=== PATIENT | female | born 1945 | race Caucasian/White ===

== ENCOUNTER 2017-01-25 08:14 | Day surgery (SDC) | payer OTHER, MEDICARE ==
[~2017-01-25] VITALS: Ht 167.6 cm; Wt 104.3 kg
[~2017-01-25 08:14] MED LIST: AMARYL2 MG PO; CO Q-10100 MG PO; GLUCOPHAGE1000 MG PO; GLUCOPHAGE500 MG PO; IRON325 M1 PO; LIPITOR40 MG PO; LO-DOSE ASPIRIN81 M2 PO; LOPRESSOR25 MG PO; OMEGA 3 500 SO1 EACH PO; PLAQUENIL200 MG PO; PRILOSEC20 MG PO; PRINIVIL10 MG PO; SYNTHROID50 MCG PO; ULTRAM50 MG PO; VITAMIN D35000 UNIT PO; ZOLOFT50 MG PO
[2017-01-25 08:59] LABS: POINT-OF-CARE METER ID UU13113694
== END 2017-01-25 09:46 | disposition home or self-care (01) ==
LOC: PAIN 08:14 → SDC 09:00 → PAIN 09:00
PROVIDERS: Anesthesiology Pain Medicine
DX: M16.0 Bilateral primary osteoarthritis of hip (principal); G89.29 Other chronic pain; M25.551 Pain in right hip; M25.552 Pain in left hip; L93.0 Discoid lupus erythematosus; M47.816 Spondylosis without myelopathy or radiculopathy, lumbar region; M51.36 Other intervertebral disc degeneration, lumbar region; E11.9 Type 2 diabetes mellitus without complications; I10 Essential (primary) hypertension; E03.9 Hypothyroidism, unspecified; K21.9 Gastro-esophageal reflux disease without esophagitis; Z85.3 Personal history of malignant neoplasm of breast; Z88.0 Allergy status to penicillin; Z79.82 Long term (current) use of aspirin
CPT/HCPCS: 82948; J1030; J2250; J3010; S0020